=== PATIENT | female | born 1960 | race Caucasian/White ===

== ENCOUNTER 2017-05-19 08:51 | Emergency (ER) | payer OTHER ==
[~2017-05-19] VITALS: Ht 160 cm; Wt 56.7 kg
[2017-05-19 08:51] VITALS: BP 144/110
[2017-05-19] MEDS ORDERED: IBUPROFEN 600 MG TABLET PO ONE (09:18)
[2017-05-19] MEDS: IBUPROFEN 600 MG TABLET PO ONE (09:37)
== END 2017-05-19 11:23 | disposition home or self-care (01) ==
LOC: ER 08:54
DX: S00.83XA Contusion of other part of head, initial encounter (principal); V43.52XA Car driver injured in collision with other type car in traffic accident, initial encounter; Y93.89 Activity, other specified; Y92.413 State road as the place of occurrence of the external cause; Y99.8 Other external cause status; I10 Essential (primary) hypertension
CPT/HCPCS: 70486-TC; A4606; Z7610